=== PATIENT | female | born 1940 | race Caucasian/White ===

== ENCOUNTER 2019-05-20 15:38 | Inpatient (IN) ==
[2019-05-20] MEDS ORDERED: SODIUM CHLORIDE 0.9% 1,000 ML IV STA (16:13)
[2019-05-20] MEDS ORDERED: cefTRIAXone 1,000 MG in SODIUM CHLORIDE 0.9% 100 ML IV STA (16:13)
[2019-05-20 16:54] LABS: Basophils % 0.4 % (0.0-0.8); Eosinophils % 0.3 % (0.00-10.9); Hematocrit 43.4 VOL% (35.7-47.0); Hemoglobin 14.4 GM/DL (12.0-16.0); Immature Granulocytes % 0.5 %; Immature Granulocytes Absolute 0.05 #; Lymphocytes # 0.9 10*3/uL (1.4-4.0); Lymphocytes % 9.8 % (21.3-54.2); Mean Corpuscular HGB Conc 33.2 GM/DL (32-36); Mean Corpuscular Volume 90.6 FL (87-102); Mean Platelet Volume 11.2 FL (9.6-12.0); Monocytes % 7.1 % (1.7-12.7); Neutrophils % 81.9 % (38.7-73.9); Platelet Count 174 T/CUMM (130-400); Red Blood Count 4.79 MC/CUMM (3.8-5.5); Red Cell Distribution Width 11.9 % (9.3-17.3); White Blood Count 9.4 T/CUMM (4-12)
[2019-05-20] MEDS ORDERED: INSULIN REGULAR 100 UNIT/ML SUBCUT STA (17:14)
[2019-05-20 17:21] LABS: Albumin 3.6 G/DL (3.4-5.0); Bilirubin,Total 0.9 MG/DL (0.2-1.0); Calcium 9.1 MG/DL (8.5-10.1); Osmolality,Calculated 278.5 MOS/KG (273-304); Total Protein 8.8 G/DL (6.4-8.3)
[2019-05-20 17:23] LABS: Apearance,Urine Slightly Hazy (Clear); Bacteria,Urine Many /HPF (Few); Bilirubin,Urine Negative (Negative); Blood, Urine Moderate mg/dL (Negative); Glucose,Urine (UA) >=500 mg/dL (Negative); Hyaline Casts,Urine 8 /LPF (0-3); Ketones,Urine 20 mg/dL (Negative); Mucus,Urine Occasional /LPF (Occasional); Nitrite,Urine Positive (Negative); Protein,Urine 100 MG/DL; RBC,Urine 11 /HPF (0-4); Urine Color Yellow (Yellow); Urine Specific Gravity 1.018 (1.001-1.035); Urine Urobilinogen < 2.0 EU/DL (0.2-1.0); WBC,Urine 57 /HPF (0-6)
[2019-05-20 17:31] LABS: Band Neutrophils 1 % (0-10); Eosinophils 1 % (0-10); Lymphocytes 14 % (20-55); Segmented Neutrophils 77 % (50-85); Total Cells Counted 100
[2019-05-20 17:32] LABS: Platelet Estimate Adequate
[2019-05-20] MEDS ORDERED: ONDANSETRON 4 MG/2 ML VIAL IV PRN (18:04)
[2019-05-20] MEDS ORDERED: CYCLOBENZAPRINE 10 MG TABLET PO PRN (18:19)
[2019-05-20] MEDS: SODIUM CHLORIDE 0.9% 1,000 ML IV SCH (20:30)
[2019-05-20] MEDS: SIMVASTATIN 20 MG TABLET PO SCH (20:47)
[2019-05-20] MEDS: ACETAMINOPHEN 325 MG TABLET PO PRN (20:47)
[2019-05-20] MEDS: MELATONIN 3 MG TABLET PO SCH (20:48)
[2019-05-20] MEDS: PANTOPRAZOLE 40 MG TABLET PO SCH (20:48)
[2019-05-20] MEDS: carvediloL 6.25 MG TABLET PO SCH (20:48)
[2019-05-20] MEDS: INSULIN GLARGINE 100 UNIT/ML SUBCUT SCH ×2 (20:48→21:12)
[2019-05-20] MEDS: MONTELUKAST 10 MG TABLET PO SCH (20:48)
[2019-05-20] MEDS: PILOCARPINE 5 MG TABLET PO SCH (22:28)
[2019-05-21 04:47] LABS: Basophils # 0.1 10*3/uL (0.0-0.2); Basophils % 0.7 % (0.0-0.8); Eosinophils % 0.4 % (0.00-10.9); Hemoglobin 13.9 GM/DL (12.0-16.0); Immature Granulocytes % 0.3 %; Immature Granulocytes Absolute 0.02 #; Lymphocytes # 1.7 10*3/uL (1.4-4.0); Lymphocytes % 22.9 % (21.3-54.2); Mean Corpuscular HGB Conc 32.3 GM/DL (32-36); Mean Corpuscular Volume 92.7 FL (87-102); Monocytes % 8.5 % (1.7-12.7); Neutrophils % 67.2 % (38.7-73.9); Platelet Count 190 T/CUMM (130-400); Red Blood Count 4.64 MC/CUMM (3.8-5.5); Red Cell Distribution Width 11.9 % (9.3-17.3); White Blood Count 7.2 T/CUMM (4-12)
[2019-05-21 05:37] LABS: Bilirubin,Total 1.2 MG/DL (0.2-1.0); Calcium 8.8 MG/DL (8.5-10.1); Osmolality,Calculated 282.7 MOS/KG (273-304); Risk Ratio 3.47; Thyroid Stimulating Hormone 1.16 uIU/ml (0.358-3.74); Total Protein 7.4 G/DL (6.4-8.3); VLDL CHOLESTEROL 17.4 MG/DL
[2019-05-21] MEDS ORDERED: NON-FORMULARY MEDICATION (Red Yeast Rice 600 MG) PO SCH (09:00)
[2019-05-21] MEDS: INSULIN LISPRO 100 UNIT/ML SUBCUT SCH ×3 (09:00→16:23)
[2019-05-21] MEDS ORDERED: PANTOPRAZOLE 40 MG TABLET PO SCH (09:00)
[2019-05-21] MEDS: amLODIPine 10 MG TABLET PO SCH (09:01)
[2019-05-21] MEDS: ENOXAPARIN 40 MG/0.4 ML SYRINGE SUBCUT SCH (09:01)
[2019-05-21] MEDS: carvediloL 6.25 MG TABLET PO SCH ×2 (09:01→16:17)
[2019-05-21] MEDS: OMEGA 3 ACID ETHYL ESTERS 1 GM CAPSULE PO SCH (09:01)
[2019-05-21] MEDS: ASPIRIN EC 81 MG TABLET PO SCH (09:01)
[2019-05-21] MEDS: ARIPiprazole 2 MG TABLET PO SCH (09:01)
[2019-05-21] MEDS: CITALOPRAM 40 MG TABLET PO SCH (09:01)
[2019-05-21] MEDS: DONEPEZIL 10 MG TABLET PO SCH (09:01)
[2019-05-21] MEDS: cefTRIAXone 1,000 MG in SYRINGE 1 EACH IV SCH (09:02)
[2019-05-21] MEDS: PILOCARPINE 5 MG TABLET PO SCH ×3 (09:02→21:49)
[2019-05-21] MEDS: SODIUM CHLORIDE 0.9% 1,000 ML IV SCH (09:06)
[2019-05-21] MEDS ORDERED: MAGNESIUM SULF RIDER 4 GM in PREMIX 1 EACH IV PRN (09:07)
[2019-05-21] MEDS ORDERED: MAGNESIUM SULF RIDER 2 GM in PREMIX 1 EACH IV PRN (09:07)
[2019-05-21] MEDS ORDERED: NITROGLYCERIN SL 0.4 MG TABLET SL ONE (09:38)
[2019-05-21] MEDS ORDERED: NITROGLYCERIN SL 0.4 MG TABLET SL PRN (09:38)
[2019-05-21] MEDS: FLUTICASONE 50 MCG NASAL SPRAY 16 GM BOTTLE BOTH NARES SCH (09:59)
[2019-05-21] MEDS: ACETAMINOPHEN 325 MG TABLET PO PRN (16:09)
[2019-05-21] MEDS: SIMVASTATIN 20 MG TABLET PO SCH (21:41)
[2019-05-21] MEDS: MONTELUKAST 10 MG TABLET PO SCH (21:42)
[2019-05-21] MEDS: MELATONIN 3 MG TABLET PO SCH (21:42)
[2019-05-21] MEDS: INSULIN GLARGINE 100 UNIT/ML SUBCUT SCH (21:42)
[2019-05-21] MEDS: PANTOPRAZOLE 40 MG TABLET PO SCH (21:42)
[2019-05-22] MEDS: SODIUM CHLORIDE 0.9% 1,000 ML IV SCH ×2 (04:51→19:10)
[2019-05-22 05:07] LABS: Basophils % 0.6 % (0.0-0.8); Eosinophils # 0.1 10*3/uL (0.0-0.87); Eosinophils % 1.8 % (0.00-10.9); Hematocrit 39.5 VOL% (35.7-47.0); Hemoglobin 13.1 GM/DL (12.0-16.0); Immature Granulocytes % 0.3 %; Immature Granulocytes Absolute 0.02 #; Lymphocytes # 1.3 10*3/uL (1.4-4.0); Lymphocytes % 21.2 % (21.3-54.2); Mean Corpuscular HGB Conc 33.2 GM/DL (32-36); Mean Corpuscular Volume 91.2 FL (87-102); Mean Platelet Volume 10.8 FL (9.6-12.0); Monocytes % 8.7 % (1.7-12.7); Neutrophils % 67.4 % (38.7-73.9); Platelet Count 198 T/CUMM (130-400); Red Blood Count 4.33 MC/CUMM (3.8-5.5); Red Cell Distribution Width 11.9 % (9.3-17.3); White Blood Count 6.2 T/CUMM (4-12)
[2019-05-22 05:32] LABS: Albumin 2.4 G/DL (3.4-5.0); Bilirubin,Total 0.4 MG/DL (0.2-1.0); Calcium 7.6 MG/DL (8.5-10.1); Osmolality,Calculated 285.5 MOS/KG (273-304); Total Protein 6.5 G/DL (6.4-8.3)
[2019-05-22] MEDS: INSULIN LISPRO 100 UNIT/ML SUBCUT SCH ×3 (09:29→17:26)
[2019-05-22] MEDS: FLUTICASONE 50 MCG NASAL SPRAY 16 GM BOTTLE BOTH NARES SCH (09:30)
[2019-05-22] MEDS: CITALOPRAM 40 MG TABLET PO SCH (09:30)
[2019-05-22] MEDS: ASPIRIN EC 81 MG TABLET PO SCH (09:30)
[2019-05-22] MEDS: OMEGA 3 ACID ETHYL ESTERS 1 GM CAPSULE PO SCH (09:30)
[2019-05-22] MEDS: amLODIPine 10 MG TABLET PO SCH (09:30)
[2019-05-22] MEDS: DONEPEZIL 10 MG TABLET PO SCH (09:30)
[2019-05-22] MEDS: POTASSIUM CHLORIDE 20 MEQ TABLET PO PRN ×5 (09:30→22:57)
[2019-05-22] MEDS: carvediloL 6.25 MG TABLET PO SCH ×2 (09:30→17:26)
[2019-05-22] MEDS: cefTRIAXone 1,000 MG in SYRINGE 1 EACH IV SCH (09:31)
[2019-05-22] MEDS: PILOCARPINE 5 MG TABLET PO SCH ×3 (10:04→21:05)
[2019-05-22] MEDS: ARIPiprazole 2 MG TABLET PO SCH (10:30)
[2019-05-22] MEDS: ENOXAPARIN 40 MG/0.4 ML SYRINGE SUBCUT SCH (11:27)
[2019-05-22] MEDS: PANTOPRAZOLE 40 MG TABLET PO SCH (20:26)
[2019-05-22] MEDS: MELATONIN 3 MG TABLET PO SCH (20:26)
[2019-05-22] MEDS: INSULIN GLARGINE 100 UNIT/ML SUBCUT SCH (20:27)
[2019-05-22] MEDS: MONTELUKAST 10 MG TABLET PO SCH (20:27)
[2019-05-22] MEDS: SIMVASTATIN 20 MG TABLET PO SCH (20:30)
[2019-05-23] MEDS: carvediloL 6.25 MG TABLET PO SCH ×2 (09:31→17:25)
[2019-05-23] MEDS: ARIPiprazole 2 MG TABLET PO SCH (09:31)
[2019-05-23] MEDS: ASPIRIN EC 81 MG TABLET PO SCH (09:31)
[2019-05-23] MEDS: amLODIPine 10 MG TABLET PO SCH (09:31)
[2019-05-23] MEDS: OMEGA 3 ACID ETHYL ESTERS 1 GM CAPSULE PO SCH (09:31)
[2019-05-23] MEDS: INSULIN LISPRO 100 UNIT/ML SUBCUT SCH ×3 (09:32→17:13)
[2019-05-23] MEDS: ENOXAPARIN 40 MG/0.4 ML SYRINGE SUBCUT SCH (09:32)
[2019-05-23] MEDS: FLUTICASONE 50 MCG NASAL SPRAY 16 GM BOTTLE BOTH NARES SCH (09:32)
[2019-05-23] MEDS: DONEPEZIL 10 MG TABLET PO SCH (09:32)
[2019-05-23] MEDS: cefTRIAXone 1,000 MG in SYRINGE 1 EACH IV SCH (09:32)
[2019-05-23] MEDS: CITALOPRAM 40 MG TABLET PO SCH (09:32)
[2019-05-23] MEDS: PILOCARPINE 5 MG TABLET PO SCH ×3 (09:33→21:37)
[2019-05-23] MEDS: SODIUM CHLORIDE 0.9% 1,000 ML IV SCH (11:02)
[2019-05-23] MEDS ORDERED: TUBERCULIN SKIN TEST 0.1 ML SYRINGE INTRADERM ONE (11:28)
[2019-05-23] MEDS: MELATONIN 3 MG TABLET PO SCH (21:03)
[2019-05-23] MEDS: MONTELUKAST 10 MG TABLET PO SCH (21:03)
[2019-05-23] MEDS: INSULIN GLARGINE 100 UNIT/ML SUBCUT SCH (21:04)
[2019-05-23] MEDS: SIMVASTATIN 20 MG TABLET PO SCH (21:04)
[2019-05-23] MEDS: PANTOPRAZOLE 40 MG TABLET PO SCH (21:04)
[2019-05-24] MEDS: SODIUM CHLORIDE 0.9% 1,000 ML IV SCH ×2 (00:41→12:26)
[2019-05-24 05:50] LABS: Basophils % 0.4 % (0.0-0.8); Eosinophils # 0.2 10*3/uL (0.0-0.87); Eosinophils % 2.9 % (0.00-10.9); Hematocrit 40.3 VOL% (35.7-47.0); Hemoglobin 13.6 GM/DL (12.0-16.0); Immature Granulocytes % 0.3 %; Immature Granulocytes Absolute 0.02 #; Lymphocytes # 2.5 10*3/uL (1.4-4.0); Lymphocytes % 36.1 % (21.3-54.2); Mean Corpuscular HGB Conc 33.7 GM/DL (32-36); Mean Corpuscular Volume 89.4 FL (87-102); Monocytes % 9.9 % (1.7-12.7); Neutrophils % 50.4 % (38.7-73.9); Platelet Count 251 T/CUMM (130-400); Red Blood Count 4.51 MC/CUMM (3.8-5.5); Red Cell Distribution Width 11.9 % (9.3-17.3); White Blood Count 6.9 T/CUMM (4-12)
[2019-05-24 06:06] LABS: Calcium 8.4 MG/DL (8.5-10.1)
[2019-05-24] MEDS: ENOXAPARIN 40 MG/0.4 ML SYRINGE SUBCUT SCH (09:33)
[2019-05-24] MEDS: DONEPEZIL 10 MG TABLET PO SCH (09:34)
[2019-05-24] MEDS: carvediloL 6.25 MG TABLET PO SCH (09:34)
[2019-05-24] MEDS: CITALOPRAM 40 MG TABLET PO SCH (09:34)
[2019-05-24] MEDS: amLODIPine 10 MG TABLET PO SCH (09:34)
[2019-05-24] MEDS: OMEGA 3 ACID ETHYL ESTERS 1 GM CAPSULE PO SCH (09:34)
[2019-05-24] MEDS: INSULIN LISPRO 100 UNIT/ML SUBCUT SCH ×2 (09:34→12:41)
[2019-05-24] MEDS: ARIPiprazole 2 MG TABLET PO SCH (09:34)
[2019-05-24] MEDS: ASPIRIN EC 81 MG TABLET PO SCH (09:34)
[2019-05-24] MEDS: cefTRIAXone 1,000 MG in SYRINGE 1 EACH IV SCH (09:35)
[2019-05-24] MEDS: PILOCARPINE 5 MG TABLET PO SCH (09:35)
[2019-05-24] MEDS: FLUTICASONE 50 MCG NASAL SPRAY 16 GM BOTTLE BOTH NARES SCH (09:35)
[2019-05-24 12:29] VITALS: BP 134/67
[2019-06-15] MEDS ORDERED: CYANOCOBALAMIN 1000 MCG/1 ML VIAL IM SCH (09:00)
== END 2019-05-24 13:20 | DRG 872 ==
LOC: N.ED 15:38 → SUATTDRO 18:02 → N.EDINP 18:02 → N.5E 19:00
PROVIDERS: ADMIT Internal Medicine; ATTEND Internal Medicine

== ENCOUNTER 2021-07-26 17:51 | Inpatient (IN) ==
[2021-07-26] MEDS ORDERED: SODIUM CHLORIDE 0.9% 1,000 ML IV STA (18:18)
[2021-07-26 18:36] LABS: ABG HCO3 25.9 MMOL/L (20-26); ABG Oxygen Saturation 97.4 % (95-100); ABG PCO2 46.5 MM HG (35-48); ABG PH 7.363 (7.35-7.45); ABG PO2 108.7 MM HG (80-95); ABG TCO2 27.3 MMOL/L (23-27)
[2021-07-26 18:52] LABS: Basophils % 0.1 % (0.0-0.8); Eosinophils % 0.2 % (0.00-10.9); Hematocrit 51.1 VOL% (35.7-47.0); Immature Granulocytes % 0.5 %; Immature Granulocytes Absolute 0.08 #; Lymphocytes # 2.3 10*3/uL (1.4-4.0); Lymphocytes % 14.5 % (21.3-54.2); Mean Corpuscular HGB Conc 29.4 GM/DL (32-36); Mean Corpuscular Volume 101.4 FL (87-102); Monocytes % 5.5 % (1.7-12.7); Neutrophils % 79.2 % (38.7-73.9); Platelet Count 211 T/CUMM (130-400); Red Blood Count 5.04 MC/CUMM (3.8-5.5); Red Cell Distribution Width 12.4 % (9.3-17.3); White Blood Count 15.6 T/CUMM (4-12)
[2021-07-26 19:07] LABS: Albumin 2.7 G/DL (3.4-5.0); Bilirubin,Total 0.7 MG/DL (0.20-1.00); Calcium 8.9 MG/DL (8.5-10.1); Osmolality,Calculated 376.5 MOS/KG (273-304); Total Protein 6.9 G/DL (6.4-8.2)
[2021-07-26 19:19] LABS: Bacteria,Urine Many /HPF (Few); Bilirubin,Urine Negative (Negative); Blood, Urine Negative (Negative); Glucose,Urine (UA) >=500 mg/dL (Negative); Hyaline Casts,Urine 3 /LPF (0-3); Ketones,Urine 5 mg/dL (Negative); Mucus,Urine Occasional /LPF (Occasional); Nitrite,Urine Negative (Negative); Protein,Urine Negative; RBC,Urine 1 /HPF (0-4); Squamous Epithelial Cell,Urine Occasional /HPF (0-10); Urine Appearance Slightly Hazy (Clear); Urine Color Amber (Yellow); Urine Specific Gravity 1.018 (1.001-1.035)
[2021-07-26] MEDS ORDERED: CEFEPIME 1,000 MG in SODIUM CHLORIDE 0.9% 100 ML IV STA (19:22)
[2021-07-26] MEDS ORDERED: LACTATED RINGERS 2,000 ML IV ONE (20:24)
[2021-07-26] MEDS ORDERED: VANCOMYCIN INJ 500 MG in SODIUM CHLORIDE 0.9% 100 ML IV STA (20:26)
[2021-07-26] MEDS ORDERED: GLUCAGON 1 MG VIAL IM PRN ×2 (20:26→20:43)
[2021-07-26] MEDS ORDERED: CEFTRIAXONE IV SCH (20:30)
[2021-07-26] MEDS ORDERED: SODIUM CHLORIDE 0.9% IV SCH (20:30)
[2021-07-26] MEDS ORDERED: DEXTROSE 50% 25 GM/50 ML VIAL IV PRN (20:43)
[2021-07-26] MEDS ORDERED: DEXTROSE 10% 25 GM/250 ML BAG IV PRN (20:52)
[2021-07-26] MEDS ORDERED: INSULIN REGULAR 100 UNIT/ML SUBCUT SCH (21:00)
[2021-07-26] MEDS ORDERED: ACETAMINOPHEN 325 MG TABLET PO PRN (21:01)
[2021-07-26 21:10] LABS: Thyroid Stimulating Hormone 1.33 uIU/ml (0.358-3.74)
[2021-07-26 21:12] LABS: Risk Ratio 3.68; VLDL Cholesterol 18.8 MG/DL
[2021-07-26 21:53] LABS: Ferritin 2498.5 ng/mL (8-252)
[2021-07-26 22:33] LABS: INR 1.1; PT Patient Result 12.6 SECS (10.5-12.0)
[2021-07-26] MEDS: HEPARIN 5,000 UNIT/1 ML VIAL SUBCUT SCH (22:57)
[2021-07-26] MEDS: INSULIN REGULAR 100 UNIT/ML SUBCUT SCH (22:58)
[2021-07-26] MEDS: metroNIDAZOLE INJ 500 MG/100 ML PREMIX IV SCH (23:10)
[2021-07-26] MEDS: DEXTROSE 5% 1,000 ML IV SCH (23:34)
[2021-07-27] MEDS ORDERED: cefTRIAXone 1,000 MG in SODIUM CHLORIDE 0.9% 100 ML IV ONE
[2021-07-27] MEDS ORDERED: VANCOMYCIN INJ 750 MG in SODIUM CHLORIDE 0.9% 250 ML IV ONE (02:00)
[2021-07-27 05:21] LABS: Basophils % 0.1 % (0.0-0.8); Eosinophils % 0.2 % (0.00-10.9); Hematocrit 42.3 VOL% (35.7-47.0); Immature Granulocytes % 0.5 %; Immature Granulocytes Absolute 0.07 #; Lymphocytes # 2.7 10*3/uL (1.4-4.0); Lymphocytes % 17.8 % (21.3-54.2); Mean Corpuscular HGB Conc 29.1 GM/DL (32-36); Mean Corpuscular Volume 102.7 FL (87-102); Mean Platelet Volume 13.2 FL (9.6-12.0); Monocytes % 4.2 % (1.7-12.7); Neutrophils % 77.2 % (38.7-73.9); Platelet Count 131 T/CUMM (130-400); Red Blood Count 4.12 MC/CUMM (3.8-5.5); Red Cell Distribution Width 12.3 % (9.3-17.3); White Blood Count 15.1 T/CUMM (4-12)
[2021-07-27 05:22] LABS: Hemoglobin 12.3 GM/DL (12.0-16.0)
[2021-07-27 05:24] LABS: Albumin 1.9 G/DL (3.4-5.0); Bilirubin,Total 0.7 MG/DL (0.20-1.00); Calcium 8.1 MG/DL (8.5-10.1); Osmolality,Calculated 359.2 MOS/KG (273-304); Total Protein 5.7 G/DL (6.4-8.2)
[2021-07-27 05:25] LABS: Band Neutrophils 32 % (0-10); Lymphocytes 12 % (20-55); Platelet Estimate Adequate; Segmented Neutrophils 54 % (50-85); Total Cells Counted 100
[2021-07-27 05:26] LABS: Anisocytosis 1+
[2021-07-27] MEDS: DEXTROSE 5% 1,000 ML IV SCH ×3 (05:32→15:53)
[2021-07-27] MEDS: INSULIN REGULAR 100 UNIT/ML SUBCUT SCH ×3 (06:20→17:37)
[2021-07-27] MEDS: metroNIDAZOLE INJ 500 MG/100 ML PREMIX IV SCH ×3 (06:39→21:48)
[2021-07-27] MEDS ORDERED: INFLUENZA VIRUS VACCINE 0.5 ML SYRINGE IM ONE (06:45)
[2021-07-27] MEDS: HEPARIN 5,000 UNIT/1 ML VIAL SUBCUT SCH ×2 (09:23→21:51)
[2021-07-27] MEDS: COLLAGENASE OINT 30 GM TUBE TOP SCH (09:23)
[2021-07-27] MEDS: PILOCARPINE 5 MG TABLET PO SCH ×3 (09:23→21:48)
[2021-07-27] MEDS: INSULIN GLARGINE 100 UNIT/ML SUBCUT SCH (16:10)
[2021-07-28] MEDS: INSULIN REGULAR 100 UNIT/ML SUBCUT SCH ×4 (00:58→17:33)
[2021-07-28] MEDS: DEXTROSE 5% 1,000 ML IV SCH ×2 (00:59→13:12)
[2021-07-28] MEDS ORDERED: VANCOMYCIN INJ 750 MG in SODIUM CHLORIDE 0.9% 250 ML IV PRN (02:00)
[2021-07-28 02:03] LABS: Basophils % 0.1 % (0.0-0.8); Eosinophils # 0.2 10*3/uL (0.0-0.87); Eosinophils % 1.6 % (0.00-10.9); Hematocrit 38.6 VOL% (35.7-47.0); Hemoglobin 11.6 GM/DL (12.0-16.0); Immature Granulocytes % 0.7 %; Immature Granulocytes Absolute 0.09 #; Lymphocytes # 2.7 10*3/uL (1.4-4.0); Lymphocytes % 19.8 % (21.3-54.2); Mean Corpuscular HGB Conc 30.1 GM/DL (32-36); Mean Corpuscular Volume 100.3 FL (87-102); Mean Platelet Volume 12.4 FL (9.6-12.0); Monocytes % 4.5 % (1.7-12.7); Neutrophils % 73.3 % (38.7-73.9); Platelet Count 103 T/CUMM (130-400); Red Blood Count 3.85 MC/CUMM (3.8-5.5); Red Cell Distribution Width 11.9 % (9.3-17.3); White Blood Count 13.8 T/CUMM (4-12)
[2021-07-28 02:39] LABS: Bilirubin,Total 0.6 MG/DL (0.20-1.00); Total Protein 5.6 G/DL (6.4-8.2)
[2021-07-28 02:43] LABS: Albumin 1.9 G/DL (3.4-5.0); Calcium 7.6 MG/DL (8.5-10.1); Potassium 2.9 MMOL/L (3.5-5.1)
[2021-07-28] MEDS ORDERED: VANCOMYCIN INJ 750 MG in SODIUM CHLORIDE 0.9% 250 ML IV ONE (03:00)
[2021-07-28] MEDS: metroNIDAZOLE INJ 500 MG/100 ML PREMIX IV SCH ×3 (05:57→21:57)
[2021-07-28] MEDS: INSULIN GLARGINE 100 UNIT/ML SUBCUT SCH (09:02)
[2021-07-28] MEDS: PILOCARPINE 5 MG TABLET PO SCH ×3 (09:02→21:58)
[2021-07-28] MEDS: HEPARIN 5,000 UNIT/1 ML VIAL SUBCUT SCH ×2 (09:02→21:59)
[2021-07-28] MEDS: COLLAGENASE OINT 30 GM TUBE TOP SCH (09:02)
[2021-07-28] MEDS ORDERED: POTASSIUM CHLORIDE 20 MEQ TABLET PO ONE (12:04)
[2021-07-28] MEDS: SODIUM CHLOR 0.45% KCL 20 MEQ 20 MEQ/1,000 ML BAG IV SCH (12:35)
[2021-07-28] MEDS: VANCOMYCIN INJ 750 MG in SODIUM CHLORIDE 0.9% 250 ML IV SCH (21:58)
[2021-07-29] MEDS: SODIUM CHLOR 0.45% KCL 20 MEQ 20 MEQ/1,000 ML BAG IV SCH ×3 (00:53→22:33)
[2021-07-29] MEDS: INSULIN REGULAR 100 UNIT/ML SUBCUT SCH ×4 (00:55→18:05)
[2021-07-29] MEDS: metroNIDAZOLE INJ 500 MG/100 ML PREMIX IV SCH ×2 (06:09→18:06)
[2021-07-29 08:20] LABS: Basophils % 0.1 % (0.0-0.8); Eosinophils # 0.1 10*3/uL (0.0-0.87); Eosinophils % 1.3 % (0.00-10.9); Hemoglobin 11.5 GM/DL (12.0-16.0); Immature Granulocytes % 0.8 %; Immature Granulocytes Absolute 0.07 #; Lymphocytes # 2.1 10*3/uL (1.4-4.0); Lymphocytes % 23.7 % (21.3-54.2); Mean Corpuscular HGB Conc 31.9 GM/DL (32-36); Mean Corpuscular Volume 95.2 FL (87-102); Mean Platelet Volume 13.1 FL (9.6-12.0); Monocytes % 4.5 % (1.7-12.7); Neutrophils % 69.6 % (38.7-73.9); Red Blood Count 3.78 MC/CUMM (3.8-5.5); Red Cell Distribution Width 11.6 % (9.3-17.3); White Blood Count 8.9 T/CUMM (4-12)
[2021-07-29 08:26] LABS: Platelet Count 94 T/CUMM (130-400)
[2021-07-29 08:41] LABS: Band Neutrophils 2 % (0-10); Eosinophils 4 % (0-10); Hypochromia 1+; Lymphocytes 19 % (20-55); Segmented Neutrophils 68 % (50-85); Total Cells Counted 100
[2021-07-29 08:42] LABS: Microcytosis 1+; Platelet Estimate Decreased
[2021-07-29 08:47] LABS: Bilirubin,Total 0.5 MG/DL (0.20-1.00); Total Protein 5.7 G/DL (6.4-8.2)
[2021-07-29 08:53] LABS: Albumin 1.9 G/DL (3.4-5.0); Calcium 7.7 MG/DL (8.5-10.1); Osmolality,Calculated 292.4 MOS/KG (273-304); Potassium 3.6 MMOL/L (3.5-5.1)
[2021-07-29 08:54] LABS: Calcium 7.9 MG/DL (8.5-10.1); Osmolality,Calculated 288.5 MOS/KG (273-304); Potassium 3.3 MMOL/L (3.5-5.1)
[2021-07-29] MEDS: PILOCARPINE 5 MG TABLET PO SCH ×3 (09:06→22:05)
[2021-07-29] MEDS: INSULIN GLARGINE 100 UNIT/ML SUBCUT SCH (09:07)
[2021-07-29] MEDS: HEPARIN 5,000 UNIT/1 ML VIAL SUBCUT SCH ×2 (09:09→22:05)
[2021-07-29] MEDS: COLLAGENASE OINT 30 GM TUBE TOP SCH (09:19)
[2021-07-29] MEDS ORDERED: MAGNESIUM SULF RIDER 4 GM/100 ML PREMIX IV PRN (12:09)
[2021-07-29] MEDS ORDERED: MAGNESIUM SULF RIDER 2 GM/50 ML PREMIX IV PRN (12:09)
[2021-07-29] MEDS ORDERED: POTASSIUM PHOSPHATE 15 MMOL in SODIUM CHLORIDE 0.9% 100 ML IV ONE (13:00)
[2021-07-29] MEDS: cefTRIAXone 1,000 MG in SODIUM CHLORIDE 0.9% 100 ML IV SCH (17:04)
[2021-07-29] MEDS: MENTHOL/ZINC OXIDE OINT 71 GM JAR TOP SCH ×2 (17:04→22:05)
[2021-07-29] MEDS: VANCOMYCIN INJ 750 MG in SODIUM CHLORIDE 0.9% 250 ML IV SCH (22:02)
[2021-07-30] MEDS: INSULIN REGULAR 100 UNIT/ML SUBCUT SCH ×4 (00:32→17:58)
[2021-07-30] MEDS: metroNIDAZOLE INJ 500 MG/100 ML PREMIX IV SCH ×3 (02:11→18:18)
[2021-07-30 05:35] LABS: Basophils % 0.3 % (0.0-0.8); Eosinophils # 0.1 10*3/uL (0.0-0.87); Eosinophils % 1.2 % (0.00-10.9); Hematocrit 36.7 VOL% (35.7-47.0); Hemoglobin 11.7 GM/DL (12.0-16.0); Immature Granulocytes % 0.8 %; Immature Granulocytes Absolute 0.06 #; Lymphocytes # 1.6 10*3/uL (1.4-4.0); Lymphocytes % 21.4 % (21.3-54.2); Mean Corpuscular HGB Conc 31.9 GM/DL (32-36); Mean Corpuscular Volume 93.6 FL (87-102); Mean Platelet Volume 13.4 FL (9.6-12.0); Monocytes % 5.1 % (1.7-12.7); Neutrophils % 71.2 % (38.7-73.9); Platelet Count 47 T/CUMM (130-400); Red Blood Count 3.92 MC/CUMM (3.8-5.5); Red Cell Distribution Width 11.6 % (9.3-17.3); White Blood Count 7.2 T/CUMM (4-12)
[2021-07-30 05:55] LABS: Albumin 1.8 G/DL (3.4-5.0); Calcium 7.1 MG/DL (8.5-10.1); Calcium 7.9 MG/DL (8.5-10.1); Osmolality,Calculated 290.5 MOS/KG (273-304); Osmolality,Calculated 291.4 MOS/KG (273-304); Potassium 3.6 MMOL/L (3.5-5.1); Potassium 4.9 MMOL/L (3.5-5.1)
[2021-07-30 06:12] LABS: Atypical Lymphocytes Few; Band Neutrophils 1 % (0-10); Eosinophils 1 % (0-10); Lymphocytes 21 % (20-55); Microcytosis 1+; Segmented Neutrophils 74 % (50-85); Total Cells Counted 100
[2021-07-30 06:13] LABS: Platelet Estimate Decreased
[2021-07-30] MEDS: SODIUM CHLOR 0.45% KCL 20 MEQ 20 MEQ/1,000 ML BAG IV SCH ×3 (06:35→21:56)
[2021-07-30] MEDS: INSULIN GLARGINE 100 UNIT/ML SUBCUT SCH (09:35)
[2021-07-30] MEDS: PILOCARPINE 5 MG TABLET PO SCH ×3 (09:35→21:52)
[2021-07-30] MEDS: COLLAGENASE OINT 30 GM TUBE TOP SCH (09:36)
[2021-07-30] MEDS: MENTHOL/ZINC OXIDE OINT 71 GM JAR TOP SCH ×2 (09:36→21:53)
[2021-07-30] MEDS: HEPARIN 5,000 UNIT/1 ML VIAL SUBCUT SCH ×2 (09:36→21:53)
[2021-07-30] MEDS ORDERED: TUBERCULIN SKIN TEST 0.1 ML SYRINGE INTRADERM ONE (10:00)
[2021-07-30] MEDS ORDERED: POTASSIUM CHLORIDE RIDER 10 MEQ/100 ML PREMIX IV PRN (10:47)
[2021-07-30] MEDS ORDERED: NITROGLYCERIN SL 0.4 MG TABLET SL PRN (12:30)
[2021-07-30] MEDS: ARIPiprazole 2 MG TABLET PO SCH (12:50)
[2021-07-30 16:06] LABS: Osmolality, Urine 498 mOsm/kg (150 - 1150)
[2021-07-30] MEDS: CARBIDOPA/LEVODOPA 25-100 MG TABLET PO SCH ×2 (16:21→21:52)
[2021-07-30] MEDS: carvediloL 6.25 MG TABLET PO SCH (16:21)
[2021-07-30] MEDS: cefTRIAXone 1,000 MG in SODIUM CHLORIDE 0.9% 100 ML IV SCH (17:03)
[2021-07-30 18:21] LABS: Osmolality, Serum 384 mOsm/kg (275 - 295)
[2021-07-30] MEDS: DONEPEZIL 10 MG TABLET PO SCH (21:52)
[2021-07-31] MEDS: SODIUM CHLOR 0.45% KCL 20 MEQ 20 MEQ/1,000 ML BAG IV SCH ×4 (02:15→21:12)
[2021-07-31] MEDS: INSULIN REGULAR 100 UNIT/ML SUBCUT SCH ×4 (02:15→18:27)
[2021-07-31] MEDS: metroNIDAZOLE INJ 500 MG/100 ML PREMIX IV SCH ×3 (02:32→18:39)
[2021-07-31 05:40] LABS: Calcium 8.2 MG/DL (8.5-10.1); Osmolality,Calculated 287.1 MOS/KG (273-304); Potassium 4.1 MMOL/L (3.5-5.1)
[2021-07-31] MEDS: OMEGA 3 ACID ETHYL ESTERS 1 GM CAPSULE PO SCH (08:37)
[2021-07-31] MEDS: carvediloL 6.25 MG TABLET PO SCH ×2 (08:38→18:02)
[2021-07-31] MEDS: ARIPiprazole 2 MG TABLET PO SCH (08:38)
[2021-07-31] MEDS: CARBIDOPA/LEVODOPA 25-100 MG TABLET PO SCH ×3 (08:38→21:12)
[2021-07-31] MEDS: CITALOPRAM 40 MG TABLET PO SCH (08:38)
[2021-07-31] MEDS: INSULIN GLARGINE 100 UNIT/ML SUBCUT SCH (08:38)
[2021-07-31] MEDS: amLODIPine 10 MG TABLET PO SCH (08:38)
[2021-07-31] MEDS: HEPARIN 5,000 UNIT/1 ML VIAL SUBCUT SCH ×2 (08:39→21:12)
[2021-07-31] MEDS: COLLAGENASE OINT 30 GM TUBE TOP SCH (08:39)
[2021-07-31] MEDS: MENTHOL/ZINC OXIDE OINT 71 GM JAR TOP SCH ×2 (08:39→21:12)
[2021-07-31] MEDS: PILOCARPINE 5 MG TABLET PO SCH ×3 (08:41→21:12)
[2021-07-31] MEDS: THIAMINE 100 MG TABLET PO SCH (15:35)
[2021-07-31] MEDS: cefTRIAXone 1,000 MG in SODIUM CHLORIDE 0.9% 100 ML IV SCH (18:02)
[2021-07-31] MEDS: DONEPEZIL 10 MG TABLET PO SCH (21:12)
[2021-08-01] MEDS: INSULIN REGULAR 100 UNIT/ML SUBCUT SCH ×5 (01:30→22:16)
[2021-08-01] MEDS: metroNIDAZOLE INJ 500 MG/100 ML PREMIX IV SCH ×3 (03:45→22:59)
[2021-08-01 06:39] LABS: Basophils % 0.2 % (0.0-0.8); Eosinophils # 0.1 10*3/uL (0.0-0.87); Eosinophils % 0.9 % (0.00-10.9); Hematocrit 33.7 VOL% (35.7-47.0); Hemoglobin 10.8 GM/DL (12.0-16.0); Immature Granulocytes % 1.1 %; Immature Granulocytes Absolute 0.11 #; Lymphocytes # 2.1 10*3/uL (1.4-4.0); Lymphocytes % 19.9 % (21.3-54.2); Mean Corpuscular Volume 93.6 FL (87-102); Monocytes % 7.4 % (1.7-12.7); Neutrophils % 70.5 % (38.7-73.9); Platelet Count 134 T/CUMM (130-400); Red Cell Distribution Width 11.9 % (9.3-17.3); White Blood Count 10.4 T/CUMM (4-12)
[2021-08-01 07:04] LABS: Eosinophils 1 % (0-10); Hypochromia 1+; Lymphocytes 16 % (20-55); Microcytosis 1+; Platelet Estimate Normal; Segmented Neutrophils 76 % (50-85); Total Cells Counted 100
[2021-08-01 07:10] LABS: Calcium 7.9 MG/DL (8.5-10.1); Osmolality,Calculated 277.7 MOS/KG (273-304); Potassium 4.2 MMOL/L (3.5-5.1)
[2021-08-01] MEDS: HEPARIN 5,000 UNIT/1 ML VIAL SUBCUT SCH ×2 (08:42→22:59)
[2021-08-01] MEDS: CITALOPRAM 40 MG TABLET PO SCH (08:43)
[2021-08-01] MEDS: amLODIPine 10 MG TABLET PO SCH (08:43)
[2021-08-01] MEDS: carvediloL 6.25 MG TABLET PO SCH ×2 (08:43→17:35)
[2021-08-01] MEDS: INSULIN GLARGINE 100 UNIT/ML SUBCUT SCH (08:43)
[2021-08-01] MEDS: PILOCARPINE 5 MG TABLET PO SCH ×3 (08:43→22:15)
[2021-08-01] MEDS: CARBIDOPA/LEVODOPA 25-100 MG TABLET PO SCH ×3 (08:43→22:15)
[2021-08-01] MEDS: THIAMINE 100 MG TABLET PO SCH (08:43)
[2021-08-01] MEDS: OMEGA 3 ACID ETHYL ESTERS 1 GM CAPSULE PO SCH (08:44)
[2021-08-01] MEDS: COLLAGENASE OINT 30 GM TUBE TOP SCH (08:45)
[2021-08-01] MEDS: SODIUM CHLOR 0.45% KCL 20 MEQ 20 MEQ/1,000 ML BAG IV SCH ×2 (08:45→17:48)
[2021-08-01] MEDS: MENTHOL/ZINC OXIDE OINT 71 GM JAR TOP SCH ×2 (08:45→22:15)
[2021-08-01] MEDS: ARIPiprazole 2 MG TABLET PO SCH (08:46)
[2021-08-01] MEDS ORDERED: SODIUM PHOSPHATE INJ 21 MMOL in SODIUM CHLORIDE 0.9% 250 ML IV ONE (14:00)
[2021-08-01] MEDS: cefTRIAXone 1,000 MG in SODIUM CHLORIDE 0.9% 100 ML IV SCH (18:30)
[2021-08-01] MEDS ORDERED: INSULIN GLARGINE 100 UNIT/ML SUBCUT SCH (21:00)
[2021-08-01] MEDS: DONEPEZIL 10 MG TABLET PO SCH (22:15)
[2021-08-02] MEDS: metroNIDAZOLE INJ 500 MG/100 ML PREMIX IV SCH ×3 (03:14→18:10)
[2021-08-02] MEDS: SODIUM CHLOR 0.45% KCL 20 MEQ 20 MEQ/1,000 ML BAG IV SCH ×2 (03:23→15:10)
[2021-08-02 05:50] LABS: Basophils % 0.3 % (0.0-0.8); Eosinophils # 0.1 10*3/uL (0.0-0.87); Hematocrit 39.8 VOL% (35.7-47.0); Hemoglobin 12.5 GM/DL (12.0-16.0); Immature Granulocytes % 1.2 %; Immature Granulocytes Absolute 0.12 #; Lymphocytes # 2.2 10*3/uL (1.4-4.0); Lymphocytes % 21.4 % (21.3-54.2); Mean Corpuscular HGB Conc 31.4 GM/DL (32-36); Mean Corpuscular Volume 94.3 FL (87-102); Mean Platelet Volume 11.8 FL (9.6-12.0); Monocytes % 8.9 % (1.7-12.7); Neutrophils % 67.2 % (38.7-73.9); Platelet Count 209 T/CUMM (130-400); Red Blood Count 4.22 MC/CUMM (3.8-5.5); White Blood Count 10.1 T/CUMM (4-12)
[2021-08-02 05:53] LABS: Calcium 8.7 MG/DL (8.5-10.1); Osmolality,Calculated 282.8 MOS/KG (273-304); Potassium 3.8 MMOL/L (3.5-5.1)
[2021-08-02] MEDS ORDERED: LACTATED RINGERS 1,000 ML IV SCH (08:00)
[2021-08-02] MEDS: INSULIN REGULAR 100 UNIT/ML SUBCUT SCH ×4 (10:01→23:12)
[2021-08-02] MEDS: CITALOPRAM 40 MG TABLET PO SCH (10:01)
[2021-08-02] MEDS: ARIPiprazole 2 MG TABLET PO SCH (10:01)
[2021-08-02] MEDS: CARBIDOPA/LEVODOPA 25-100 MG TABLET PO SCH ×3 (10:02→21:55)
[2021-08-02] MEDS: OMEGA 3 ACID ETHYL ESTERS 1 GM CAPSULE PO SCH (10:02)
[2021-08-02] MEDS: amLODIPine 10 MG TABLET PO SCH (10:02)
[2021-08-02] MEDS: PILOCARPINE 5 MG TABLET PO SCH ×3 (10:02→21:55)
[2021-08-02] MEDS: carvediloL 6.25 MG TABLET PO SCH ×2 (10:03→16:34)
[2021-08-02] MEDS: THIAMINE 100 MG TABLET PO SCH (10:03)
[2021-08-02] MEDS ORDERED: LIDOCAINE 2% 5 ML VIAL ONE (13:53)
[2021-08-02] MEDS ORDERED: ETOMIDATE 20 MG/10 ML VIAL IV ONE (13:53)
[2021-08-02] MEDS: MENTHOL/ZINC OXIDE OINT 71 GM JAR TOP SCH ×2 (16:40→21:55)
[2021-08-02] MEDS: cefTRIAXone 1,000 MG in SODIUM CHLORIDE 0.9% 100 ML IV SCH (16:40)
[2021-08-02] MEDS: COLLAGENASE OINT 30 GM TUBE TOP SCH (16:41)
[2021-08-02] MEDS: DONEPEZIL 10 MG TABLET PO SCH (21:55)
[2021-08-02] MEDS: INSULIN GLARGINE 100 UNIT/ML SUBCUT SCH (21:55)
[2021-08-03] MEDS: metroNIDAZOLE INJ 500 MG/100 ML PREMIX IV SCH (02:39)
[2021-08-03] MEDS: SODIUM CHLOR 0.45% KCL 20 MEQ 20 MEQ/1,000 ML BAG IV SCH (04:54)
[2021-08-03 05:43] LABS: Basophils % 0.4 % (0.0-0.8); Eosinophils # 0.1 10*3/uL (0.0-0.87); Hematocrit 39.4 VOL% (35.7-47.0); Hemoglobin 11.8 GM/DL (12.0-16.0); Immature Granulocytes % 0.7 %; Immature Granulocytes Absolute 0.06 #; Lymphocytes # 1.9 10*3/uL (1.4-4.0); Lymphocytes % 23.3 % (21.3-54.2); Mean Corpuscular HGB Conc 29.9 GM/DL (32-36); Mean Corpuscular Volume 98.7 FL (87-102); Mean Platelet Volume 12.7 FL (9.6-12.0); Monocytes % 6.9 % (1.7-12.7); Neutrophils % 67.7 % (38.7-73.9); Platelet Count 152 T/CUMM (130-400); Red Blood Count 3.99 MC/CUMM (3.8-5.5); Red Cell Distribution Width 12.2 % (9.3-17.3); White Blood Count 8.3 T/CUMM (4-12)
[2021-08-03 07:42] LABS: Osmolality,Calculated 272.8 MOS/KG (273-304); Potassium 4.3 MMOL/L (3.5-5.1)
[2021-08-03] MEDS: COLLAGENASE OINT 30 GM TUBE TOP SCH (10:45)
[2021-08-03] MEDS: MENTHOL/ZINC OXIDE OINT 71 GM JAR TOP SCH ×2 (10:45→21:29)
[2021-08-03] MEDS: ARIPiprazole 2 MG TABLET PO SCH (11:58)
[2021-08-03] MEDS: INSULIN REGULAR 100 UNIT/ML SUBCUT SCH ×4 (11:58→21:28)
[2021-08-03] MEDS: carvediloL 6.25 MG TABLET PO SCH ×2 (11:58→17:30)
[2021-08-03] MEDS: CITALOPRAM 40 MG TABLET PO SCH (11:58)
[2021-08-03] MEDS: CARBIDOPA/LEVODOPA 25-100 MG TABLET PO SCH ×3 (11:59→21:28)
[2021-08-03] MEDS: OMEGA 3 ACID ETHYL ESTERS 1 GM CAPSULE PO SCH (11:59)
[2021-08-03] MEDS: THIAMINE 100 MG TABLET PO SCH (11:59)
[2021-08-03] MEDS: PILOCARPINE 5 MG TABLET PO SCH ×3 (11:59→21:28)
[2021-08-03] MEDS: amLODIPine 10 MG TABLET PO SCH (11:59)
[2021-08-03] MEDS: cefTRIAXone 1,000 MG in SODIUM CHLORIDE 0.9% 100 ML IV SCH (17:31)
[2021-08-03] MEDS: INSULIN GLARGINE 100 UNIT/ML SUBCUT SCH (21:29)
[2021-08-03] MEDS: DONEPEZIL 10 MG TABLET PO SCH (21:30)
[2021-08-04] MEDS: SODIUM CHLOR 0.45% KCL 20 MEQ 20 MEQ/1,000 ML BAG IV SCH ×2 (00:31→23:27)
[2021-08-04 05:37] LABS: Basophils % 0.2 % (0.0-0.8); Eosinophils # 0.1 10*3/uL (0.0-0.87); Eosinophils % 1.2 % (0.00-10.9); Hematocrit 35.2 VOL% (35.7-47.0); Hemoglobin 11.1 GM/DL (12.0-16.0); Immature Granulocytes % 0.7 %; Immature Granulocytes Absolute 0.06 #; Lymphocytes % 24.8 % (21.3-54.2); Mean Corpuscular HGB Conc 31.5 GM/DL (32-36); Mean Corpuscular Volume 94.1 FL (87-102); Mean Platelet Volume 10.6 FL (9.6-12.0); Monocytes % 8.3 % (1.7-12.7); Neutrophils % 64.8 % (38.7-73.9); Platelet Count 231 T/CUMM (130-400); Red Blood Count 3.74 MC/CUMM (3.8-5.5); Red Cell Distribution Width 12.1 % (9.3-17.3); White Blood Count 8.2 T/CUMM (4-12)
[2021-08-04 06:03] LABS: Calcium 8.6 MG/DL (8.5-10.1); Potassium 4.2 MMOL/L (3.5-5.1)
[2021-08-04] MEDS: carvediloL 6.25 MG TABLET PO SCH ×2 (10:01→18:23)
[2021-08-04] MEDS: amLODIPine 10 MG TABLET PO SCH (10:01)
[2021-08-04] MEDS: CARBIDOPA/LEVODOPA 25-100 MG TABLET PO SCH ×3 (10:01→21:19)
[2021-08-04] MEDS: OMEGA 3 ACID ETHYL ESTERS 1 GM CAPSULE PO SCH (10:01)
[2021-08-04] MEDS: PILOCARPINE 5 MG TABLET PO SCH ×3 (10:01→21:19)
[2021-08-04] MEDS: COLLAGENASE OINT 30 GM TUBE TOP SCH (10:02)
[2021-08-04] MEDS: MENTHOL/ZINC OXIDE OINT 71 GM JAR TOP SCH ×2 (10:02→21:18)
[2021-08-04] MEDS: ARIPiprazole 2 MG TABLET PO SCH (10:02)
[2021-08-04] MEDS: THIAMINE 100 MG TABLET PO SCH (10:02)
[2021-08-04] MEDS: CITALOPRAM 40 MG TABLET PO SCH (10:02)
[2021-08-04] MEDS: INSULIN REGULAR 100 UNIT/ML SUBCUT SCH ×4 (14:30→21:18)
[2021-08-04] MEDS: cefTRIAXone 1,000 MG in SODIUM CHLORIDE 0.9% 100 ML IV SCH (19:21)
[2021-08-04] MEDS: DONEPEZIL 10 MG TABLET PO SCH (21:18)
[2021-08-05] MEDS: SODIUM CHLOR 0.45% KCL 20 MEQ 20 MEQ/1,000 ML BAG IV SCH ×2 (03:26→05:59)
[2021-08-05 06:16] LABS: Osmolality,Calculated 271.8 MOS/KG (273-304); Potassium 4.5 MMOL/L (3.5-5.1)
[2021-08-05] MEDS: INSULIN REGULAR 100 UNIT/ML SUBCUT SCH ×2 (07:28→11:57)
[2021-08-05] MEDS: CITALOPRAM 40 MG TABLET PO SCH (09:55)
[2021-08-05] MEDS: ARIPiprazole 2 MG TABLET PO SCH (09:56)
[2021-08-05] MEDS: THIAMINE 100 MG TABLET PO SCH (09:57)
[2021-08-05] MEDS: carvediloL 6.25 MG TABLET PO SCH (09:58)
[2021-08-05] MEDS: CARBIDOPA/LEVODOPA 25-100 MG TABLET PO SCH ×2 (09:58→15:15)
[2021-08-05] MEDS: amLODIPine 10 MG TABLET PO SCH (10:00)
[2021-08-05] MEDS: OMEGA 3 ACID ETHYL ESTERS 1 GM CAPSULE PO SCH (10:01)
[2021-08-05] MEDS: COLLAGENASE OINT 30 GM TUBE TOP SCH (10:02)
[2021-08-05] MEDS: MENTHOL/ZINC OXIDE OINT 71 GM JAR TOP SCH (10:02)
[2021-08-05] MEDS: PILOCARPINE 5 MG TABLET PO SCH ×2 (10:02→15:15)
[2021-08-05 12:02] VITALS: BP 128/56
[2021-08-05 14:01] LABS: Immature Granulocytes % 0.7 %; Immature Granulocytes Absolute 0.06 #
[2021-08-05 14:15] LABS: Basophils % 0.3 % (0.0-0.8); Eosinophils # 0.1 10*3/uL (0.0-0.87); Eosinophils % 1.4 % (0.00-10.9); Hematocrit 40.1 VOL% (35.7-47.0); Hemoglobin 12.5 GM/DL (12.0-16.0); Lymphocytes # 1.9 10*3/uL (1.4-4.0); Lymphocytes % 27.1 % (21.3-54.2); Mean Corpuscular HGB Conc 31.2 GM/DL (32-36); Mean Corpuscular Volume 97.6 FL (87-102); Mean Platelet Volume 11.5 FL (9.6-12.0); Monocytes % 8.2 % (1.7-12.7); Neutrophils % 62.6 % (38.7-73.9); Platelet Count 219 T/CUMM (130-400); Red Blood Count 4.11 MC/CUMM (3.8-5.5); Red Cell Distribution Width 12.4 % (9.3-17.3); White Blood Count 7.1 T/CUMM (4-12)
== END 2021-08-05 15:15 | DRG 871 ==
LOC: N.ED 17:51 → SUATTDRO 19:49 → N.3E 19:49
PROVIDERS: ADMIT Internal Medicine; ATTEND Hospitalist

== ENCOUNTER 2021-10-04 13:03 | Inpatient (IN) ==
[2021-10-04 15:15] LABS: Basophils # 0.1 10*3/uL (0.0-0.2); Basophils % 0.4 % (0.0-0.8); Eosinophils % 0.1 % (0.00-10.9); Hematocrit 29.4 VOL% (35.7-47.0); Immature Granulocytes % 0.6 %; Immature Granulocytes Absolute 0.09 #; Lymphocytes # 2.2 10*3/uL (1.4-4.0); Mean Corpuscular HGB Conc 30.6 GM/DL (32-36); Mean Corpuscular Volume 91.3 FL (87-102); Monocytes # 0.9 10*3/uL (0.11-0.8); Monocytes % 5.4 % (1.7-12.7); Neutrophils % 79.5 % (38.7-73.9); Platelet Count 488 T/CUMM (130-400); Red Blood Count 3.22 MC/CUMM (3.8-5.5); Red Cell Distribution Width 14.3 % (9.3-17.3); White Blood Count 15.7 T/CUMM (4-12)
[2021-10-04 16:12] LABS: Alanine Aminotransferase < 9 U/L (13-56); Albumin 1.7 G/DL (3.4-5.0); Alkaline Phosphatase 89 U/L (45-117); Aspartate Amino Transferase 19 U/L (0-37); Bilirubin,Total < 0.39 MG/DL (0.20-1.00); Blood Urea Nitrogen 19 MG/DL (7-18); Calcium 8.7 MG/DL (8.5-10.1); Carbon Dioxide 32 MMOL/L (21-32); Chloride 100 MMOL/L (98-107); Estimated Glom Filtration Rate 39 ML/MIN; Glucose 209 MG/DL (74-106); Osmolality,Calculated 277.1 MOS/KG (273-304); Potassium 3.7 MMOL/L (3.5-5.1); Sodium 135 MMOL/L (136-145); Total Protein 7.8 G/DL (6.4-8.2)
[2021-10-04] MEDS ORDERED: SODIUM CHLORIDE 0.9% 1,000 ML IV STA (16:28)
[2021-10-04] MEDS ORDERED: cefTRIAXone 1,000 MG in SODIUM CHLORIDE 0.9% 100 ML IV STA (16:28)
[2021-10-04] MEDS ORDERED: ONDANSETRON 4 MG/2 ML VIAL IV PRN (16:55)
[2021-10-04] MEDS ORDERED: ACETAMINOPHEN 325 MG TABLET PO PRN (16:55)
[2021-10-04] MEDS ORDERED: GLUCAGON 1 MG VIAL IM PRN (16:55)
[2021-10-04] MEDS ORDERED: DEXTROSE 10% 250 ML BAG IV PRN (17:03)
[2021-10-04 17:29] LABS: Thyroid Stimulating Hormone 2.37 uIU/ml (0.358-3.74)
[2021-10-04] MEDS ORDERED: VANCOMYCIN INJ 1,000 MG in SODIUM CHLORIDE 0.9% 250 ML IV ONE (18:00)
[2021-10-04] MEDS: INSULIN LISPRO 100 UNIT/ML SUBCUT SCH (19:09)
[2021-10-04] MEDS: LACTATED RINGERS 1,000 ML IV SCH (20:20)
[2021-10-05] MEDS: INSULIN LISPRO 100 UNIT/ML SUBCUT SCH ×4 (00:16→17:37)
[2021-10-05 04:59] LABS: Basophils # 0.1 10*3/uL (0.0-0.2); Basophils % 0.4 % (0.0-0.8); Eosinophils # 0.1 10*3/uL (0.0-0.87); Eosinophils % 0.7 % (0.00-10.9); Hematocrit 26.4 VOL% (35.7-47.0); Immature Granulocytes % 0.6 %; Lymphocytes # 5.6 10*3/uL (1.4-4.0); Lymphocytes % 31.4 % (21.3-54.2); Mean Corpuscular HGB Conc 30.3 GM/DL (32-36); Mean Platelet Volume 9.2 FL (9.6-12.0); Monocytes # 0.8 10*3/uL (0.11-0.8); Monocytes % 4.7 % (1.7-12.7); Neutrophils % 62.2 % (38.7-73.9); Platelet Count 519 T/CUMM (130-400); Red Blood Count 2.87 MC/CUMM (3.8-5.5); Red Cell Distribution Width 14.5 % (9.3-17.3); White Blood Count 17.9 T/CUMM (4-12)
[2021-10-05 05:16] LABS: Calcium 8.4 MG/DL (8.5-10.1); Osmolality,Calculated 271.8 MOS/KG (273-304); Potassium 3.4 MMOL/L (3.5-5.1)
[2021-10-05 05:19] LABS: Platelet Estimate Normal
[2021-10-05 05:20] LABS: Hypochromia Slight
[2021-10-05] MEDS: PANTOPRAZOLE 40 MG TABLET PO SCH (05:45)
[2021-10-05] MEDS: LACTATED RINGERS 1,000 ML IV SCH ×2 (05:56→21:50)
[2021-10-05] MEDS: ARIPiprazole 2 MG TABLET PO SCH (09:00)
[2021-10-05] MEDS: CITALOPRAM 40 MG TABLET PO SCH (09:00)
[2021-10-05] MEDS: ASPIRIN EC 81 MG TABLET PO SCH (09:00)
[2021-10-05] MEDS: CARBIDOPA/LEVODOPA 25-100 MG TABLET PO SCH ×3 (09:00→21:50)
[2021-10-05] MEDS: OMEGA 3 ACID ETHYL ESTERS 1 GM CAPSULE PO SCH (09:00)
[2021-10-05] MEDS: MULTIVITAMIN (CENTRUM) TABLET PO SCH (09:00)
[2021-10-05] MEDS: FLUTICASONE 50 MCG NASAL SPRAY 16 GM BOTTLE BOTH NARES SCH (10:30)
[2021-10-05] MEDS ORDERED: ETOMIDATE 40 MG/20 ML VIAL IV ONE (10:58)
[2021-10-05] MEDS ORDERED: SEVOFLURANE 1 UNIT/15 MINUTE INH ONE ×3 (10:58→11:50)
[2021-10-05] MEDS ORDERED: propofoL 200 MG/20 ML VIAL IV ONE (10:58)
[2021-10-05] MEDS ORDERED: DEXAMETHASONE 4 MG/1 ML VIAL ONE (10:58)
[2021-10-05] MEDS ORDERED: ONDANSETRON 4 MG/2 ML VIAL ONE (10:58)
[2021-10-05] MEDS ORDERED: LIDOCAINE 2% 5 ML VIAL ONE (10:58)
[2021-10-05] MEDS: CEFEPIME 1,000 MG in SODIUM CHLORIDE 0.9% 100 ML IV SCH ×3 (11:00→22:00)
[2021-10-05] MEDS ORDERED: PHENYLEPHRINE 1 MG/10 ML SYRINGE IV ONE ×2 (11:15→11:24)
[2021-10-05] MEDS ORDERED: ePHEDrine 50 MG/ML VIAL ONE (11:24)
[2021-10-05] MEDS ORDERED: ACETAMINOPHEN INJ 1,000 MG/100 ML VIAL IV ONE (11:30)
[2021-10-05] MEDS ORDERED: POTASSIUM CHLORIDE 20 MEQ TABLET PO ONE (13:52)
[2021-10-05] MEDS: MORPHINE 2 MG/1 ML SYRINGE IV PRN ×2 (14:13→19:18)
[2021-10-05] MEDS ORDERED: cefTRIAXone 2,000 MG in SODIUM CHLORIDE 0.9% 100 ML IV SCH (17:00)
[2021-10-05] MEDS ORDERED: VANCOMYCIN INJ 1,000 MG in SODIUM CHLORIDE 0.9% 250 ML IV SCH (18:00)
[2021-10-05] MEDS: MELATONIN 3 MG TABLET PO SCH (21:49)
[2021-10-05] MEDS: SIMVASTATIN 20 MG TABLET PO SCH (21:49)
[2021-10-05] MEDS: MONTELUKAST 10 MG TABLET PO SCH (21:49)
[2021-10-05] MEDS: DONEPEZIL 10 MG TABLET PO SCH (21:50)
[2021-10-06] MEDS: INSULIN LISPRO 100 UNIT/ML SUBCUT SCH ×4 (02:33→17:51)
[2021-10-06] MEDS: CEFEPIME 1,000 MG in SODIUM CHLORIDE 0.9% 100 ML IV SCH ×2 (04:36→12:15)
[2021-10-06 05:28] LABS: Basophils % 0.1 % (0.0-0.8); Hematocrit 27.3 VOL% (35.7-47.0); Hemoglobin 8.1 GM/DL (12.0-16.0); Immature Granulocytes % 0.9 %; Immature Granulocytes Absolute 0.13 #; Lymphocytes # 1.6 10*3/uL (1.4-4.0); Mean Corpuscular HGB Conc 29.7 GM/DL (32-36); Mean Corpuscular Volume 93.2 FL (87-102); Mean Platelet Volume 9.6 FL (9.6-12.0); Monocytes # 0.3 10*3/uL (0.11-0.8); Monocytes % 2.2 % (1.7-12.7); Neutrophils % 85.8 % (38.7-73.9); Platelet Count 482 T/CUMM (130-400); Red Blood Count 2.93 MC/CUMM (3.8-5.5); Red Cell Distribution Width 14.4 % (9.3-17.3); White Blood Count 14.8 T/CUMM (4-12)
[2021-10-06] MEDS: PANTOPRAZOLE 40 MG TABLET PO SCH (06:22)
[2021-10-06] MEDS: LACTATED RINGERS 1,000 ML IV SCH ×2 (06:33→21:57)
[2021-10-06] MEDS: ENOXAPARIN 40 MG/0.4 ML SYRINGE SUBCUT SCH (09:55)
[2021-10-06] MEDS: OMEGA 3 ACID ETHYL ESTERS 1 GM CAPSULE PO SCH (09:55)
[2021-10-06] MEDS: ARIPiprazole 2 MG TABLET PO SCH (09:56)
[2021-10-06] MEDS: MULTIVITAMIN (CENTRUM) TABLET PO SCH (09:56)
[2021-10-06] MEDS: CARBIDOPA/LEVODOPA 25-100 MG TABLET PO SCH ×3 (09:56→21:58)
[2021-10-06] MEDS: ASPIRIN EC 81 MG TABLET PO SCH (09:56)
[2021-10-06] MEDS: CITALOPRAM 40 MG TABLET PO SCH (09:56)
[2021-10-06] MEDS: FLUTICASONE 50 MCG NASAL SPRAY 16 GM BOTTLE BOTH NARES SCH (09:58)
[2021-10-06] MEDS: SODIUM HYPOCHLORITE 0.25% IRRIG 473 ML BOTTLE TOP SCH (09:58)
[2021-10-06] MEDS: MEROPENEM 500 MG in SODIUM CHLORIDE 0.9% 100 ML IV SCH ×2 (14:53→21:57)
[2021-10-06] MEDS: MORPHINE 2 MG/1 ML SYRINGE IV PRN (17:52)
[2021-10-06] MEDS ORDERED: INSULIN GLARGINE 100 UNIT/ML SUBCUT SCH (21:00)
[2021-10-06] MEDS: MELATONIN 3 MG TABLET PO SCH (21:59)
[2021-10-06] MEDS: SIMVASTATIN 20 MG TABLET PO SCH (21:59)
[2021-10-06] MEDS: DONEPEZIL 10 MG TABLET PO SCH (21:59)
[2021-10-06] MEDS: MONTELUKAST 10 MG TABLET PO SCH (21:59)
[2021-10-07] MEDS: INSULIN LISPRO 100 UNIT/ML SUBCUT SCH ×4 (00:50→20:14)
[2021-10-07] MEDS: MEROPENEM 500 MG in SODIUM CHLORIDE 0.9% 100 ML IV SCH ×3 (03:50→18:06)
[2021-10-07 06:25] LABS: Basophils % 0.2 % (0.0-0.8); Eosinophils # 0.1 10*3/uL (0.0-0.87); Eosinophils % 0.7 % (0.00-10.9); Hematocrit 28.9 VOL% (35.7-47.0); Hemoglobin 8.6 GM/DL (12.0-16.0); Immature Granulocytes Absolute 0.13 #; Lymphocytes # 4.3 10*3/uL (1.4-4.0); Lymphocytes % 31.7 % (21.3-54.2); Mean Corpuscular HGB Conc 29.8 GM/DL (32-36); Mean Corpuscular Volume 92.9 FL (87-102); Mean Platelet Volume 9.3 FL (9.6-12.0); Monocytes # 0.8 10*3/uL (0.11-0.8); Neutrophils % 60.4 % (38.7-73.9); Platelet Count 527 T/CUMM (130-400); Red Blood Count 3.11 MC/CUMM (3.8-5.5); Red Cell Distribution Width 14.1 % (9.3-17.3); White Blood Count 13.5 T/CUMM (4-12)
[2021-10-07] MEDS: PANTOPRAZOLE 40 MG TABLET PO SCH (06:52)
[2021-10-07 06:55] LABS: Calcium 8.6 MG/DL (8.5-10.1); Osmolality,Calculated 271.4 MOS/KG (273-304); Potassium 3.9 MMOL/L (3.5-5.1)
[2021-10-07] MEDS ORDERED: MAGNESIUM SULF RIDER 2 GM/50 ML PREMIX IV ONE (08:30)
[2021-10-07] MEDS: ENOXAPARIN 40 MG/0.4 ML SYRINGE SUBCUT SCH (09:26)
[2021-10-07] MEDS: CARBIDOPA/LEVODOPA 25-100 MG TABLET PO SCH ×2 (09:27→18:06)
[2021-10-07] MEDS: ARIPiprazole 2 MG TABLET PO SCH (09:27)
[2021-10-07] MEDS: OMEGA 3 ACID ETHYL ESTERS 1 GM CAPSULE PO SCH (09:28)
[2021-10-07] MEDS: MULTIVITAMIN (CENTRUM) TABLET PO SCH (09:28)
[2021-10-07] MEDS: LACTATED RINGERS 1,000 ML IV SCH (09:28)
[2021-10-07] MEDS: ASPIRIN EC 81 MG TABLET PO SCH (09:28)
[2021-10-07] MEDS: CITALOPRAM 40 MG TABLET PO SCH (09:41)
[2021-10-07] MEDS: FLUTICASONE 50 MCG NASAL SPRAY 16 GM BOTTLE BOTH NARES SCH (09:41)
[2021-10-07] MEDS: SODIUM HYPOCHLORITE 0.25% IRRIG 473 ML BOTTLE TOP SCH (11:00)
[2021-10-07] MEDS: MORPHINE 2 MG/1 ML SYRINGE IV PRN ×2 (11:39→15:52)
[2021-10-07 17:20] VITALS: BP 138/72
== END 2021-10-07 21:10 | DRG 981 ==
LOC: EDUNIT# → EDBD → N.ED 13:03 → N.EDINP 16:55 → SUATTDRO 16:55 → N.3E 20:40
PROVIDERS: ADMIT Emergency Medicine; ATTEND Internal Medicine